=== PATIENT | female | born 1990 | race Caucasian/White ===

== ENCOUNTER → 2020-01-23 | Outpatient (CLI) | payer OTHER, SELFPAY ==
[2020-01-25 00:41] LABS: HPV APTIMA, High Risk Negative (Negative)
[2020-01-28 16:14] LABS: HPV Reflexed? YES, CHARGE PATIENT
== END | disposition home or self-care (01) ==
LOC: LABSPEC 08:54
PROVIDERS: Referring Provider Obstetrics & Gynecology; Visit Provider Obstetrics & Gynecology
DX: Z12.4 Encounter for screening for malignant neoplasm of cervix (principal)
CPT/HCPCS: 87624; 88175; G0145

== ENCOUNTER → 2020-07-02 13:00 | Outpatient (CLI) | payer OTHER, SELFPAY ==
[2020-04-22 15:01] VITALS: BMI 32.4
--- NOTE | 2020-07-02 13:10 | RAD_ITS ---
STUDY: HYSTEROSALPINGOGRAM. REASON FOR EXAM: Female, 30 years old. HYSTEROSALPINGOGRAM FLUOROSCOPY TIME (if supplied): ( 22 seconds ) minutes/seconds. 3 images were obtained. TECHNIQUE: Hysterosalpingogram was performed by the rehabilitation caseworker. Imaging was provided. COMPARISON: None. FINDINGS: The uterus is unremarkable. Both fallopian tubes are patent. RAD/Salpingogram IMPRESSION: Unremarkable hysterosalpingogram. Electronically Signed: Bashir Mendoza, at 14:49 EDT , Service support ,
== END ==
PROVIDERS: Referring Provider Obstetrics & Gynecology; Visit Provider Obstetrics & Gynecology
DX: N97.0 Female infertility associated with anovulation (principal); N92.6 Irregular menstruation, unspecified
CPT/HCPCS: 58340; 74740; Q9967

== ENCOUNTER → 2021-06-04 15:07 | Outpatient (CLI) | payer OTHER, SELFPAY ==
[2021-06-09 03:07] LABS: Chlamydia By Nucleic Acid AMP Negative (Negative)
[2021-06-09 14:01] LABS: Gonococcus By Nucleic Acid AMP Negative (Negative)
== END ==
PROVIDERS: Visit Provider Obstetrics & Gynecology
DX: Z34.81 Encounter for supervision of other normal pregnancy, first trimester (principal)
CPT/HCPCS: 87491; 87591

== ENCOUNTER → 2021-06-24 09:46 | Outpatient (CLI) | payer OTHER, SELFPAY ==
[2021-06-24 11:49] LABS: Absolute Lymphocyte Count 1.31 X10^3/uL (0.83-4.51); Absolute Neutrophil Count 6.5 X10^3/uL (2.0-7.7); Basophil# 0.04 X10^3/uL; Basophil% 0.5 % (0-1); Eosinophil# 0.31 X10^3/uL; Eosinophils% 3.6 % (0-5); Hematocrit 38.9 % (37-47); Hemoglobin 12.9 g/dL (12.0-15.0); Lymphocyte # 1.31 X10^3/ul (0.83-4.51); Lymphocyte % 15.3 % (19-41); Mean Corp Hgb Conc 33.2 g/dL (32-36); Mean Corpuscular Hgb 30.8 pg (27.0-32.0); Mean Corpuscular Volume 92.8 fL (81-99); Mean Platelet Vol. 9.7 fl (6.2-12.0); Monocyte# 0.42 X10^3/uL; Monocyte% 4.9 % (0-10); NRBC Flagged by Analyzer 0 % (0-5); Neutrophil # 6.46 X10^3/uL (2.7-7.7); Neutrophil % 75.1 % (47-70); Platelet Count 355 K/mm3 (150-450); RBC Distribution Width CV 12.4 % (11.6-14.6); RBC Distribution Width SD 42.9 fl (35.1-43.9); Red Blood Count 4.19 M/mm3 (4.2-5.4); White Blood Count 8.6 K/mm3 (4.4-11.0)
[2021-06-24 11:55] LABS: Color, Urine Yellow (Yellow); Glucose, Dipstick 1000 mg/dl (Normal); Ketone-Dipstick 15 mg/dl (Negative); Leukocyte Esterase-Dipstick Negative /ul (Negative); Nitrite-Dipstick Negative (Negative); Occult Blood-Urine 10 /ul (Negative); Protein-Dipstick Negative (Negative); Urine Bilirubin Dipstick Negative (Negative); Urine Clarity Sl. Cloudy (Clear); Urine Urobilinogen Normal (Normal)
[2021-06-24 12:54] LABS: HIV - WCH Non-Reactive (Nonreactive); Hepatitis B Surface Antigen Non-Reactive (Nonreactive); Hepatitis C Antibody Non-Reactive (Nonreactive); Rubella IgG Reactive (Nonreactive); Syphilis Antibodies Non-reactive
== END ==
PROVIDERS: Visit Provider Obstetrics & Gynecology
DX: Z34.81 Encounter for supervision of other normal pregnancy, first trimester (principal)
CPT/HCPCS: 36415; 81002; 84443; 85025; 86703; 86762; 86780; 86803; 87086; 87088; 87340

== ENCOUNTER 2021-11-02 08:55 | Outpatient (CLI) | payer OTHER, SELFPAY ==
[2021-11-02 09:45] LABS: Glucose GTT-Gestation. Fasting 84 mg/dL (<105)
[2021-11-02 10:42] LABS: Glucose GTT-Gestational 1 Hr 178 mg/dL (<190)
[2021-11-02 11:20] LABS: Glucose GTT-Gestational 2 Hr 162 mg/dL (<165)
[2021-11-02 12:50] LABS: Glucose GTT-Gestational 3 Hr 128 L (<145)
== END 2021-11-02 23:59 | disposition home or self-care (01) ==
PROVIDERS: Visit Provider Obstetrics & Gynecology
DX: O24.912 Unspecified diabetes mellitus in pregnancy, second trimester (principal)
CPT/HCPCS: 36415; 82951; 82952

== ENCOUNTER 2021-12-08 17:56 | Outpatient (CLI) | payer OTHER, SELFPAY ==
[2021-12-08 18:09] LABS: Hematocrit 36.2 % (37-47); Mean Corp Hgb Conc 35.9 g/dL (32-36); Mean Corpuscular Hgb 31.8 pg (27.0-32.0); Mean Corpuscular Volume 88.5 fL (81-99); Mean Platelet Vol. 10.6 fl (6.2-12.0); Platelet Count 270 K/mm3 (150-450); RBC Distribution Width CV 14.6 % (11.6-14.6); Red Blood Count 4.09 M/mm3 (4.2-5.4)
[2021-12-08 18:33] LABS: AST(SGOT) 15 U/L (15-37); Alanine Aminotransfer ALT/SGPT 19 U/L (13-56); Uric Acid 4.4 mg/dL (2.6-6.0)
== END 2021-12-08 23:59 | disposition home or self-care (01) ==
PROVIDERS: Visit Provider Obstetrics & Gynecology
DX: O13.9 Gestational [pregnancy-induced] hypertension without significant proteinuria, unspecified trimester (principal)
CPT/HCPCS: 84450; 84460; 84550; 85027

== ENCOUNTER 2021-12-20 10:50 | Outpatient (CLI) | payer OTHER, SELFPAY ==
[2021-12-20 11:16] VITALS: BMI 36.6
--- NOTE | 2021-12-20 20:02 | OB.TRI.NOTE ---
HPI - General HPI Narrative WARNER SUERO, is a 31 F who presents decreased movement PFSH PFSH Medical History (Updated 12/20/21 @ 20:[address] Luiz Govea MD) Asthma Allergy/AdvReac Type Severity Reaction Status Date / Time No Known Allergies Allergy Unverified 04/22/20 15:03 NST FHR Rate Baby A Baseline: 130 Variability:: Moderate Accelerations:: 15 x 15 Decelerations:: None Uterine Activity:: Quiet Assessment & Plan (1) : PLAN: Patient arrives with decreased movement, reactive NST. Now feeling regular movements. Reassuring. Okay to discharge home and follow-up scheduled appointments
== END 2021-12-20 23:59 | disposition home or self-care (01) ==
LOC: WPOUT 11:15 → WP 11:16
PROVIDERS: Referring Provider Obstetrics & Gynecology; Visit Provider Obstetrics & Gynecology
DX: O36.8190 Decreased fetal movements, unspecified trimester, not applicable or unspecified (principal); O99.519 Diseases of the respiratory system complicating pregnancy, unspecified trimester; J45.909 Unspecified asthma, uncomplicated
CPT/HCPCS: 59025; 59050; 99218; G0378

== ENCOUNTER 2021-12-22 13:30 | Outpatient (CLI) | payer OTHER, SELFPAY | END 2021-12-22 23:59 | disposition home or self-care (01) | LOC: LABSPEC 12-23 08:59 | PROVIDERS: Visit Provider Obstetrics & Gynecology | DX: Z36.85 Encounter for antenatal screening for Streptococcus B (principal) | CPT/HCPCS: 87081 ==

== ENCOUNTER 2021-12-31 18:45 | Inpatient (IN) | payer OTHER, SELFPAY ==
[2021-12-31 11:04] LABS: Hematocrit 39.6 % (37-47); Hemoglobin 13.6 g/dL (12.0-15.0); Mean Corp Hgb Conc 34.3 g/dL (32-36); Mean Corpuscular Hgb 31.3 pg (27.0-32.0); Mean Platelet Vol. 10.4 fl (6.2-12.0); Platelet Count 236 K/mm3 (150-450); RBC Distribution Width CV 14.7 % (11.6-14.6); RBC Distribution Width SD 49.1 fl (35.1-43.9); Red Blood Count 4.35 M/mm3 (4.2-5.4); White Blood Count 7.2 K/mm3 (4.4-11.0)
[2021-12-31 11:17] LABS: International Normalized Ratio 0.9; Partial Thromboplast Time 23.8 Seconds (24.1-36.2); Prothrombin Time (Protime)PT. 12.1 SECONDS (11.7-14.9)
[2021-12-31 11:50] LABS: AST(SGOT) 13 U/L (15-37); Alanine Aminotransfer ALT/SGPT 14 U/L (13-56); Creatinine, Serum 0.69 mg/dL (0.55-1.02); EST Glomerular Filtration Rate 104 mL/min (>60); Est Glom Filt Rate - Afr Amer 125 mL/min (>60); Uric Acid 4.8 mg/dL (2.6-6.0)
[2021-12-31 19:27] VITALS: BMI 37.2
[2021-12-31 19:28] VITALS: BP 133/90; PULSE 102; TEMP 37.1
[2021-12-31] MEDS: 0.9% Saline Lock 10 ML Syringe IV (19:35)
[2021-12-31 19:54] LABS: Absolute Lymphocyte Count 1.85 X10^3/uL (0.83-4.51); Absolute Neutrophil Count 6.7 X10^3/uL (2.0-7.7); Basophil# 0.02 X10^3/uL; Basophil% 0.2 % (0-1); Eosinophil# 0.07 X10^3/uL; Eosinophils% 0.8 % (0-5); Hematocrit 36.7 % (37-47); Hemoglobin 12.8 g/dL (12.0-15.0); Lymphocyte # 1.85 X10^3/ul (0.83-4.51); Lymphocyte % 20.6 % (19-41); Mean Corp Hgb Conc 34.9 g/dL (32-36); Mean Corpuscular Hgb 31.4 pg (27.0-32.0); Mean Platelet Vol. 10.5 fl (6.2-12.0); Monocyte# 0.34 X10^3/uL; Monocyte% 3.8 % (0-10); NRBC Flagged by Analyzer 0 % (0-5); Neutrophil # 6.66 X10^3/uL (2.7-7.7); Neutrophil % 74.2 % (47-70); Platelet Count 243 K/mm3 (150-450); RBC Distribution Width CV 14.5 % (11.6-14.6); RBC Distribution Width SD 47.3 fl (35.1-43.9); Red Blood Count 4.08 M/mm3 (4.2-5.4)
[2021-12-31] MEDS: miSOPROStol 25 MCG TABLET PO (20:06)
[2022-01-01] VITALS (71 sets, daily range): BP systolic 80–177; BP diastolic 42–109; PULSE 44–142; TEMP 36.2–37.1; O2SAT 79–100
[2022-01-01] MEDS: miSOPROStol 25 MCG TABLET PO ×2 (00:08→04:09)
--- NOTE | 2022-01-01 08:28 | HP.PCM.OB_ITS ---
History and Physical Date of Admission: 12/31/21 Complaint: Induction of labor for gestational hypertension History of present illness: 31-year-old at 37 weeks and 4 days with ASIA 01/18/2022 arrives for induction of labor for gestational hypertension. Denies headache, visual changes, chest pain, shortness of breath, nausea vomiting, right upper quadrant pain. Patient states good movement. is complicated by gestational hypertension Obstetric history: G1: Current Past medical history: None Medications: vitamin Past surgical history: [place] teeth extraction, foot Allergies: No known drug allergies Social history: Denies smoking, alcohol use, drug use Family history: Denies history DVT or PE View of systems: Besides above pertinent positives a full review of systems was performed and found to be negative Physical exam: Vitals: Blood pressure 148/96 pulse 77 Fahrenheit SPO2 90% on room air General: Normal-appearing no acute distress HEENT: Normocephalic atraumatic no cervical of adenopathy Cardiac/respiratory: No use of accessory muscles, nonlabored breathing Abdomen: Soft, nontender, gravid Extremities: No peripheral edema normal peripheral pulses Psych: Affect normal demeanor nonpressured speech Labs: White blood cell count 9.0 hemoglobin 12.8 hematocrit 36.7% platelets 243. Creatinine 0.69. AST 13 ALT 14. Blood type a positive antibody negative Assessment plan: 31-year-old at 37 weeks and 4 days for induction of labor with gestational hypertension Admit labor and delivery CEFM GBS negative Cytotec induction Gestational hypertension: Remains with nonsevere range pressures. We will continue to monitor Routine orders
--- NOTE | 2022-01-01 09:23 | HP.PCM_ITS ---
History and Physical Date of Admission: 12/31/21 ACOG ANTEPARTUM RECORD - HISTORY AND PHYSICAL (01/01/2022) Name: WARNER DILL History of this : This is a 31 year old [id number] presents at 37 wks + 4 days gestation for gestational HTN. OB Physician: Luis Ayala MD [place]'s Physician: UNDECIDED ...................................................................... : 1990 Age: 31 Address: [address] [place] [address] Phone: [phone]) [phone] Insurance Carrier: [employer] [id number] Emergency Contact: MALCOM DILL/SPOUSE [phone] ...................................................................... Final ASIA: 01/18/22 By Ultrasound: 7 weeks 3 days PARITY: (G-Total Pregnancies P-Fullterm,Premature,Induced AB,Spont AB, Ectopics, Multiple,Living) ASIA CONFIRMATION: By LMP: 04/06/21 Final ASIA: 01/18/22 OB PROBLEM LIST: 3 hour gtt shows that she does NOT have gestational DM. Declines genetic and carrier screening H/O UTI's Plans to breastfeed, and will likely take the office class. Prefers natural childbirth. Childbirth class encouraged. ALLERGIES: No Known Allergies MEDICATIONS: coconut oil 1,000 mg capsule One pill by mouth once a day 28 mg iron-800 mcg tablet One pill by mouth once a day Vitamin C 500 mg tablet One pill by mouth once a day SOCIAL HISTORY: Smoking - Never Alcohol Use - denies drinking Diet - no special diet Lifestyle - moderate stress lifestyle and Exercise - regular Employer - [employer] Job Description - Book Keeping Illicit Drug Use - denies use of street drugs Sexual Activity - Residence - lives with Place of - [place], [place] Hours Worked - 40 hours per week Spouse-Sig Other Name - Malcom Dill Spouse-Sig Other Occupation - Construction Spouse-Sig Other Phone No - [phone] PRIOR DELIVERY HISTORY DEL DATE GEST LAB WT LB WT OZ TYPE ANES LABOR TX ANTEPARTUM FLOW CHART VISIT GE RTC FU F F FL U U DATE WK MD WKS HT PN HR M SS BP ED WT FL GL D EF ST __ ____ ___ __ __ ___ __ __ __ ___ __ __ __ ___ __ 14 Dec 37 JMW 6 37 V + + 144/100 sl 204 tr ne 1 50 -2 05 Apr 36 JMW 1 36 V + + 134/76 0 202 tr ne ft 50 -2 Nov 35 JMW 1 35 + + 118/76 0 202 tr ne 23 Nov 34 JMW + 120/80 sl 201 tr - Nov 34 JMW .1 34 + + 140/86 1+ 198 tr ne 01 Mar 31 JMW 3 31 + + 124/68 0 198 tr - 08 Nov 16 JMW 3 28 + + 128/86 0 196 - tr Oct 11 JMW 5 24 + + 122/78 0 192 tr - 08 Sep 06 JMW 4 24 + + 110/68 0 186 tr ne 02 Aug 02 JMW 5 + ? 102/70 0 184 - - 06 Jun 28 JMW 4 U+ US 114/72 0 183 tr - ANTEPARTUM NOTE(S): Dec 31 2021: BP on side 134/88, induce; BEEBE; DRTs 2+ Dec 22 2021: No problems, Good FM Dec 15 2021: see progress note, Good FM Dec 09 2021: Dec 08 2021: no PIH sxs; check PIH labs Nov 17 2021: work related discomfort. Oct 27 2021: doing well, labs today Sep 22 2021: Glucola/Instructions given, Good FM,Feeling Well Aug 26 2021: Sono Today, Feeling Well Jul 21 2021: Nausea Better, Fatigue Continues, Declines AFP Jun 24 2021: Slight nausea,Fatigue continues COMPREHENSIVE ANTEPARTUM NOTE(S): Dec 31 2021: Warner is here for visit at 37.3 w. Some cramping w BH at home. Baby moving well. Initial BP 144/100. Repeat on left side 134/88. Lg cuff both times. Working 40+ h/w. short handed at work and stressful. PIH labs drawn now. For cytotec induction per Dr WEISS. All paperwork/forms read and sign ed. ACMILO. Dec 29 2021: H taken to OB. tkg Dec 22 2021: Marleny is here for PNV and GBS testing. Continues to work 40 hrs /wk. Denies edema. Reports good FM. Questionable FM ovder weekend and went to for monitoring. Dec 15 2021: Marleny is here for PNV. Reports feeling better this week after decreasing work hours to around 40 hrs/wk. To keep he rinsurance coverage she does not think she can decrease hours any further. Reports good FM, denies edema. Dec 09 2021: Marleny is here for nurse BP check. Continues to work 50 h/w. Does sit at work. Urine protein trace. Edema slight in feet neeta. BP 120/80 w large cuff after sitting about [address] WEISS. Advised to decrease hours to as close to 40 as she can. Stay well hydrated and be cautious about sodium intake. She is agreeable. CAMILO. Dec 08 2021: Lesli is here for PNV. Recently noting edema in lower legs. BP higher today than prev. visits and Dr. Ayala ordered PIH labs. Reports good FM. Repeat BP 136/84 laying on left side. Nov 17 2021: Lesli is doing well with exeption of some work related discomfort from sitting all day. Reports late afternoon she starts to feel uncomfortable in low belly form sitting.Discussed use of belly band, getting up and moving around frequently. Reports good FM. Oct 27 2021: 1hr gct and CBC obtained from Rt ac x 2 attempts with 23g butterfly. Patient tolerated well. Sites without compromise. Jlb Aug 26 2021: Emma and her are here for US and visit. NOB paperwork and EPDS score 3 completed. Feeling well except for constipation. Has tried Metamucil and stopped vitamin temporarily. Advised Colace and continue to increase fluids. Reminded to register for Childbirth class. CAMILO. Jul 23 2021: TELEHEALTH NOB VISIT, 50 MINUTE DURATION. Marleny is a 31 year old with an ASIA of 01/18/2022, current GA is 14 w 3 d. She states that she and her , Malcom, are happy and excited about the , as they have been trying to get for awhile. Marleny states that she has very mild nausea and fatigue. Reviewed methods that may help minimize nausea, including small frequent meals, c Sep 2020: Warner presents here today for review of US done today in our Office for possible Missed AB. 31 y.o. G 1 P 0 non-smoker with LMP of 04/06/21 and started with a sudden gush of bleeding on 05-26-21 and has had LLQ pain/twinges since that time. Continues with brown discharge through today. Medication and Allergy lists up-dated. UPT is positive today in our Office. ABHIJIT Jun 04 2021: ok REVIEW OF SYSTEMS: GENERAL - Denies fever, or chills SKIN - Denies rash, new skin lesions, or change in moles EYES - Denies blurred vision, or change in visual acuity EARS - Denies ear pain, or difficulty hearing NOSE - Denies nasal congestion, discharge, or bleeding MOUTH - Denies sore throat, or difficulty swallowing NECK - Denies pain or swelling RESPIRATORY - Denies shortness of breath, cough, wheezing CARDIOVASCULAR - Denies palpitations, chest pain, orthopnea, PND, peripheral edema, syncope or claudication GASTROINTESTINAL - Denies nausea, vomiting, diarrhea, constipation, Denies abdominal pain, melena and or bright red blood GENITOURINARY - Denies dysuria, frequency of urination, urgency, or hesitancy MUSCULOSKELETAL - Denies joint or muscle pain, or back pain NEUROLOGICAL - Denies localized numbness, weakness, or tingling PSYCHIATRIC - Denies depression, anxiety, substance abuse or suicide attempts ENDOCRINE - Denies heat or cold intolerance, weight loss or gain, increasing thirst HEMATO-IMMUNOLOGIC - Denies easy bruising, bleeding, oral ulcerations or recurrent infections GENETICS SCREENING: Age 35+ years: No Thalassemia: No Neural Tube Defect: No Down Syndrome: No MYESHA-SACHS: No Sickle Cell Disease: No Hemophilia: No Musc. Dystrophy: No Cystic Fibrosis: No-declines screening Nica Chorea: No Mental Retardation: No Fragile X: No Other genetic: No Other defects: No SABs/still births: No Drugs since LMP: No INFECTION HISTORY: High risk AIDS: No High risk Hepatitis: No Exposed to TB: No Exposed to Herpes: No Rash/viral illness since LMP: No History of STD: No MENSTRUAL HISTORY: *Menses Amount/Duration: 2-3 daysMenses Regularity: IrregularFrequency: variableMenarche (Age Onset): 11* PAST SUMMARY: PARITY: 1. Total Pregnancies............ 1 2. Full Term Pregnancies........ 0 3. Premature.................... 0 4. Abortions - Induced.......... 0 5. Abortions - Spontaneous...... 0 6. Ectopics..................... 0 7. Multiple Births.............. 0 8. Living Children.............. 0 PHYSICAL EXAMINATION General Appearence: 31 yo female in no acute distress Vital Signs: AF, VSS Heart: RRR without rubs or gallops Lungs: CTA x 2 Breasts: deferred Abdomen: gravid Pelvis: Cervix: 3-4/80 AROM clear Presentation: cephalic Station: -2 Fetus: Size: AGA Movement: present Heart: present LAB TEST(S) ORDERED SINCE:04/23/21 06/26/2021 URINE CULTURE 06/24/2021 URINALYSIS, ROUTINE (DIPSTICK) 06/24/2021 THYROID STIM HORMONE (TSH) 06/24/2021 RUBELLA IGG 06/24/2021 T AND S-NO CHARGE W/PNP 06/24/2021 L509.8000 06/24/2021 HIV - [facility] 06/24/2021 HEPATITIS C ANTIBODY 06/24/2021 HEPATITIS B SURFACE ANTIGEN 06/24/2021 CBC W/DIFF, AUTOMATED 06/09/2021 CHLAMYDIA/GC GRIFFIN APTIMA 05/30/2021 PREG SERUM QUANT 05/27/2021 PREG SERUM QUANT 12/31/2021 URIC ACID 12/31/2021 TYPE AND SCREEN 12/31/2021 SERUM CREATININE AND GFR 12/31/2021 PROTHROMBIN TIME W/INR 12/31/2021 PARTIAL THROMBOPLAST TIME 12/31/2021 COVID 19 AG RAPID (RN COLLECT) 12/31/2021 CBC-COMPLETE BLOOD CNT NO DIFF 12/31/2021 CBC W/DIFF, AUTOMATED 12/31/2021 AST(SGOT) 12/31/2021 ALANINE AMINOTRANSFERAS (SGPT) 12/28/2021 RULE OUT BETA STREP (GRP. B) 12/08/2021 URIC ACID 12/08/2021 CBC-COMPLETE BLOOD CNT NO DIFF 12/08/2021 AST(SGOT) 12/08/2021 ALANINE AMINOTRANSFERAS (SGPT) 11/02/2021 GESTATIONAL GTT 3HR 100G 10/27/2021 GLUCOSE CHALLENGE 50GM 1 HOUR 10/27/2021 CBC + DIFF == ==== Order Observation Description Value Ref_Range A* Site == ==== COVID 19 AG RAP NOTE [facility]~[address] [place], [address]~ TYPE AND SCRE AB SCREEN GEL NEGATIVE ML CBC W/DIFF, AUT NOTE [facility] CBC W/DIFF, AUT WBC 9.0 K/mm3 4.4-11.0 ML CBC W/DIFF, AUT RBC 4.08 M/mm3 4.2-5.4 L ML CBC W/DIFF, AUT HGB 12.8 g/dL 12.0-15.0 ML CBC W/DIFF, AUT HCT 36.7 37-47 L ML CBC W/DIFF, AUT MCV 90.0 fL 81-99 ML CBC W/DIFF, AUT MCH 31.4 pg 27.0-32.0 ML CBC W/DIFF, AUT MCHC 34.9 g/dL 32-36 ML CBC W/DIFF, AUT RDW CV 14.5 11.6-14.6 ML CBC W/DIFF, AUT RDW SD 47.3 fl 35.1-43.9 H ML CBC W/DIFF, AUT PLT 243 K/mm3 150-450 ML CBC W/DIFF, AUT MPV 10.5 fl 6.2-12.0 ML CBC W/DIFF, AUT NEUT% 74.2 47-70 H ML CBC W/DIFF, AUT LY% 20.6 19-41 ML CBC W/DIFF, AUT MONO% 3.8 0-10 ML CBC W/DIFF, AUT EO% 0.8 0-5 ML CBC W/DIFF, AUT BASO% 0.2 0-1 ML CBC W/DIFF, AUT IG% 0.400 0.0-0.9 ML IG% - Immature Granulocytes (promyelocytes, myelocytes and metamyelocytes) > 1% indicates that a LEFT SHIFT is Present. CBC W/DIFF, AUT ABSOLUTE NEUT 6.7 X10 3/uL 2.0-7.7 ML CBC W/DIFF, AUT ABSOLUTE LYMPH 1.85 X10 3/uL 0.83-4.51 ML CBC W/DIFF, AUT NUCLEATED RBC 0 0-5 ML ALANINE AMINOTR NOTE [facility] ALANINE AMINOTR ALT 14 U/L 13-56 ML AST(SGOT) NOTE ZAMBRANO AST(SGOT) AST 13 U/L 15-37 L ML URIC ACID NOTE Z[facility]O URIC ACID URIC 4.8 mg/dL 2.6-6.0 ML The drugs N-Acetylcysteine and Metamizole may falsely depress this assay. SERUM CREATININ NOTE ZAMBRANO SERUM CREATININ CREAT,SERUM 0.69 mg/dL 0.55-1.02 ML The validity of the calculated GFR GFRAA in patients over 70 years has not been determined. Clinical correlation is essential. SERUM CREATININ EST GFR 104 mL/min >60 ML Non- GFR Calc SERUM CREATININ EST GFR - AA 125 mL/min >60 ML GFR Calc PARTIAL THROMBO NOTE ZAMBRANO PARTIAL THROMBO PTT 23.8 Seconds 24.1-36.2 L ML PROTHROMBIN RAQUEL NOTE Z[facility]O PROTHROMBIN RAQUEL PROTIME 12.1 SECONDS 11.7-14.9 ML PROTHROMBIN RAQUEL INR 0.9 ML CBC-COMPLETE BL NOTE [facility]O CBC-COMPLETE BL WBC 7.2 K/mm3 4.4-11.0 ML CBC-COMPLETE BL RBC 4.35 M/mm3 4.2-5.4 ML CBC-COMPLETE BL HGB 13.6 g/dL 12.0-15.0 ML CBC-COMPLETE BL HCT 39.6 37-47 ML CBC-COMPLETE BL MCV 91.0 fL 81-99 ML CBC-COMPLETE BL MCH 31.3 pg 27.0-32.0 ML CBC-COMPLETE BL MCHC 34.3 g/dL 32-36 ML CBC-COMPLETE BL RDW CV 14.7 11.6-14.6 H ML CBC-COMPLETE BL RDW SD 49.1 fl 35.1-43.9 H ML CBC-COMPLETE BL PLT 236 K/mm3 150-450 ML CBC-COMPLETE BL MPV 10.4 fl 6.2-12.0 ML RULE OUT BETA S NOTE ZAMBRANO AST(SGOT) NOTE ZAMBRANO AST(SGOT) AST 15 U/L 15-37 ML ALANINE AMINOTR NOTE ZAMBRANO ALANINE AMINOTR ALT 19 U/L 13-56 ML URIC ACID NOTE ZAMBRANO URIC ACID URIC 4.4 mg/dL 2.6-6.0 ML The drugs N-Acetylcysteine and Metamizole may falsely depress this assay. CBC-COMPLETE BL NOTE ZAMBR[facility]O CBC-COMPLETE BL WBC 9.0 K/mm3 4.4-11.0 ML CBC-COMPLETE BL RBC 4.09 M/mm3 4.2-5.4 L ML CBC-COMPLETE BL HGB 13.0 g/dL 12.0-15.0 ML CBC-COMPLETE BL HCT 36.2 37-47 L ML CBC-COMPLETE BL MCV 88.5 fL 81-99 ML CBC-COMPLETE BL MCH 31.8 pg 27.0-32.0 ML CBC-COMPLETE BL MCHC 35.9 g/dL 32-36 ML CBC-COMPLETE BL RDW CV 14.6 11.6-14.6 ML CBC-COMPLETE BL RDW SD 47.0 fl 35.1-43.9 H ML CBC-COMPLETE BL PLT 270 K/mm3 150-450 ML CBC-COMPLETE BL MPV 10.6 fl 6.2-12.0 ML GESTATIONAL GTT NOTE ZAMBRANO GESTATIONAL GTT 3HR GTT- GEST. MG/DL ML FASTING 84 Col: 11/02/21 0852 GLUCOSE TOLERANCE TEST FOR Reference Interval GESTATIONAL DIABETES Fasting <105 mg/dL 1 hour <190 mg/dl 2 hour <165 mg/dl 3 hour <145 mg/dl 1 HR GLU 178 Col: 11/02/21 0952 2 HR GLU 162 Col: 11/02/21 1052 3 HR GLU 128 Col: 11/02/21 1152 GLUCOSE CHALLEN NOTE [facility] GLUCOSE CHALLEN GLUCOSE CHALLENGE 50GM 1 [facility] 50 GMS 1 HOUR GLUCOSE CHALLEN GLUCOSE 1HR 142 mg/dl 70 - [address] [facility] CBC + DIFF NOTE [facility] CBC + DIFF CBC + DIFF [facility] CBC-COMPLETE BLOOD COUNT CBC + DIFF WBC 10.3 x 10EE3/UL 4.5 - 10.8 [facility] CBC + DIFF RBC 3.93 x 10EE6/UL 4.10 - 5.30 L [facility] CBC + DIFF HEMOGLOBIN 11.9 g/dl 12.0 - 16.0 L [facility] CBC + DIFF HEMATOCRIT 35.1 % 34.0 - 46.0 [facility] CBC + DIFF MCV 89 fl 80 - 99 [facility] CBC + DIFF MCH 30 pg 27 - 33 [facility] CBC + DIFF MCHC 34 X10 3 32 - 36 [facility] CBC + DIFF RDW/CV 14.4 % 12.0 - 15.6 [facility] CBC + DIFF PLATELET 333 x10EE3/UL 150 - 450 [facility] CBC + DIFF MPV 8.2 fl 6.6 - 10.5 [facility] AUTOMATED DIFFERENTIAL CBC + DIFF NEUT % 78.8 % 46.0 - 76.0 H [facility] CBC + DIFF LYMPH % 16.3 % 20.0 - 45.0 L [facility] CBC + DIFF MONOS % 3.8 % 0.0 - 10.0 [facility] CBC + DIFF EO % 0.7 % 0.0 - 7.0 [facility] CBC + DIFF BASO % 0.4 % 0.0 - 2.0 [facility] CBC + DIFF LYMPH # 1.70 x10EE3/UL 0.80 - 2.80 [facility] CBC + DIFF NEUT # 8.20 x10EE3/UL 1.50 - 7.10 H [facility] CBC + DIFF MONO # 0.40 x10EE3/UL 0.20 - 1.00 [facility] CBC + DIFF EO # 0.10 x10EE3/UL 0.00 - 0.50 [facility] CBC + DIFF BASO # 0.00 x10EE3/UL 0.00 - 0.10 [facility] CBC + DIFF MANUAL DIFF N/A [facility] CBC + DIFF MORPHOLOGY N/A [facility] {CD] URINE CULTURE NOTE [facility] PN N [facility]~[address] [place], [address]~ T AND AB SCREEN GEL NEGATIVE ML HEPATITIS C ANT NOTE [facility] HEPATITIS C ANT HEPATITIS C AB Non-Reactive Nonreactive ML Non Reactive: < 0.8 Equivocal: >/= 0.8 to < 1.0 Reactive: >/= 1.0 The CDC recommends that a reactive/equivocal HCV antibody result be followed up by the HCV Nucleic Acid Amplification test (643452) HEPATITIS B HILLARY NOTE ZAMBR[facility]O HEPATITIS B [place]ARY HEP B SURF AG Non-Reactive Nonreactive ML HIV - WC NOTE [facility]O HIV - [facility] HIV Non-Reactive Nonreactive ML L509.8000 NOTE ZAMBRANO L509.8000 SYPHILIS ABS Non-reactive ML RUBELLA IGG NOTE [facility]BR[facility]O RUBELLA IGG RUBELLA IGG Reactive Nonreactive ML Antibody Results Interpretation of Immune Status Non Reactive Presumed Non-Immune Equivocal Equivocal Reactive Presumed Immune THYROID STIM HO NOTE [facility]O THYROID STIM HO TSH 0.80 uIU/mL 0.358-3.74 ML URINALYSIS, ROU NOTE Z[facility]BR[facility]O URINALYSIS, ROU COLOR Yellow Yellow ML URINALYSIS, ROU URINE CLARITY Sl. Cloudy Clear ML URINALYSIS, ROU GLUCOSE, UR 1000 mg/dl Normal A ML URINALYSIS, ROU BILIRUBIN URINE Negative mg/dL Negative ML URINALYSIS, ROU KETONE UR 15 mg/dl Negative A ML URINALYSIS, ROU SP.GR. DIPSTX 1.020 1.002-1.030 ML URINALYSIS, ROU PH UR 6.0 5.0 - 8.0 ML URINALYSIS, ROU PROT DIPSTX Negative mg/dl Negative ML URINALYSIS, ROU UROBILI Normal mg/dl Normal ML URINALYSIS, ROU NITRITE Negative Negative ML URINALYSIS, ROU OCCULT BLOOD-UR 10 /ul Negative A ML URINALYSIS, ROU LEUK ESTERASE Negative /ul Negative ML CBC W/DIFF, AUT NOTE Z[facility]O CBC W/DIFF, AUT WBC 8.6 K/mm3 4.4-11.0 ML CBC W/DIFF, AUT RBC 4.19 M/mm3 4.2-5.4 L ML CBC W/DIFF, AUT HGB 12.9 g/dL 12.0-15.0 ML CBC W/DIFF, AUT HCT 38.9 37-47 ML CBC W/DIFF, AUT MCV 92.8 fL 81-99 ML CBC W/DIFF, AUT MCH 30.8 pg 27.0-32.0 ML CBC W/DIFF, AUT MCHC 33.2 g/dL 32-36 ML CBC W/DIFF, AUT RDW CV 12.4 11.6-14.6 ML CBC W/DIFF, AUT RDW SD 42.9 fl 35.1-43.9 ML CBC W/DIFF, AUT PLT 355 K/mm3 150-450 ML CBC W/DIFF, AUT MPV 9.7 fl 6.2-12.0 ML CBC W/DIFF, AUT NEUT% 75.1 47-70 H ML CBC W/DIFF, AUT LY% 15.3 19-41 L ML CBC W/DIFF, AUT MONO% 4.9 0-10 ML CBC W/DIFF, AUT EO% 3.6 0-5 ML CBC W/DIFF, AUT BASO% 0.5 0-1 ML CBC W/DIFF, AUT IG% 0.600 0.0-0.9 ML IG% - Immature Granulocytes (promyelocytes, myelocytes and metamyelocytes) > 1% indicates that a LEFT SHIFT is Present. CBC W/DIFF, AUT ABSOLUTE NEUT 6.5 X10 3/uL 2.0-7.7 ML CBC W/DIFF, AUT ABSOLUTE LYMPH 1.31 X10 3/uL 0.83-4.51 ML CBC W/DIFF, AUT NUCLEATED RBC 0 0-5 ML CHLAMYDIA/GC NA NOTE Z[facility]BRANO CHLAMYDIA/GC NA CHLAMY,NUC ACID Negative Negative [facility] CHLAMYDIA/GC NA GC BY NUC ACID Negative Negative [facility] Performed at: = - [facility] [id number] College Basketball Coach: Shelby Campos MD, Phone: [phone] PREG SERUM ODETTE NOTE [facility] PREG SERUM ODETTE HCG QUANTITATIVE 11631 mIU/mL 0 - 6 H [facility] Reference Range: Male: <5 Female: Non: <5 1 - 7 days : 5 - 50 1 - 2 weeks: 50 - 500 2 - 3 weeks: 100 - 5000 3 - 4 weeks: 500 - 10,000 4 - 5 weeks: 1000 - 50,000 5 - 6 weeks: 10,000 - 100,000 6 - 8 weeks: 15,000 - 200,000 2 - 3 months: 10,000 - 100,000 2ND TRIMESTER 3000-50,000 3RD TRIMESTER 1000-50,000 PREG SERUM ODETTE NOTE [facility] PREG SERUM ODETTE HCG QUANTITATIVE 78280 mIU/mL 0 - 6 H [facility] Reference Range: Male: <5 Female: Non: <5 1 - 7 days : 5 - 50 1 - 2 weeks: 50 - 500 2 - 3 weeks: 100 - 5000 3 - 4 weeks: 500 - 10,000 4 - 5 weeks: 1000 - 50,000 5 - 6 weeks: 10,000 - 100,000 6 - 8 weeks: 15,000 - 200,000 2 - 3 months: 10,000 - 100,000 2ND TRIMESTER 3000-50,000 3RD TRIMESTER 1000-50,000 *Negative results from patients with symptom onset beyond five days should be treated as presumptive and confirmed by a molecular assay if clinically necessary. Negative results should not be used as the sole basis for treatment or for patient management. SARS-CoV-2 Ag Resp Ql IA.rapid *Positive results do not differentiate between SARS-CoV and SARS-CoV-2. If differentiation of the specific SARS virus is desired an additional sample and an additional order is required. SARS-CoV-2 Ag Resp Ql IA.rapid * This test has not been FDA cleared or approved; the test has been authorized by FDA under an Emergency Use Authorization (EAU) for use by laboratories certified under CLIA that meet the requirements to perform moderate, high, or waived complexity tests. SARS-CoV-2 Ag Resp Ql IA.rapid Normal Reference Range: Negative SARS-CoV-2 (COVID 19) Negative RAPID METHOD Quidel Maureen Analyzer CAROL A POSITIVE Group B Beta Streptococcus is not isolated. #1 Below infection level. #2 Clinical correlation necessary, Possible skin contamination. GPC Poss Enterococcus sp [place] Count 1000-10,000 Presumptive Lactobacillus sp. [place] Count 25,000-50,000 A POSITIVE == ==== Impression /Plan: 37 wks + 4 days intrauterine . Had cytotec overnight. AROM with clear fluid this AM. Preparations in progress for delivery.
[2022-01-01] MEDS: Lactated Ringers 1,000 ML 50 ML IV (09:55)
[2022-01-01] MEDS: Oxytocin 30 units/NS 500 ml 30 UNITS/500 ML IV.SOLN IV (09:55)
[2022-01-01] MEDS: Lactated Ringers 500 ML 999 ML IV ×2 (14:40→15:48)
[2022-01-01] MEDS: hydrALAZINE 20 MG/ML Vial 5 MG IV (14:47)
[2022-01-01] MEDS: hydrALAZINE 20 MG/ML Vial 10 MG IV (15:12)
[2022-01-01] MEDS: fentaNYL-bupivacaine (epidural) 100 ML BAG EPIDURAL ×2 (17:31→22:33)
[2022-01-01] MEDS: Lactated Ringers 1,000 ML 200 ML IV ×2 (17:48→22:46)
[2022-01-02] VITALS (32 sets, daily range): BP systolic 96–146; BP diastolic 67–89; PULSE 84–205; RESP 16; TEMP 36.3–38.5; O2SAT 83–100
[2022-01-02] MEDS: Mag Hydrox/Al Hydrox/Simeth 30 ML UDC PO (00:48)
[2022-01-02] MEDS: Oxytocin 30 units/NS 500 ml 30 UNITS/500 ML IV.SOLN 999 UNITS IV (01:02)
[2022-01-02] MEDS: Methylergonovine 0.2 MG/ML Ampul IM (01:05)
--- NOTE | 2022-01-02 01:22 | EX.PCM.OBRPT ---
Maternal Data Information Final ASIA: 01/18/22 Final ASIA Source: US <20 weeks Gestational age: 37 weeks 4 days gestation Vaginal Delivery Maternal Presentation Maternal Presentation: Medically Indicated Induction (Gestational Hypertension) Type of Induction: Cervidil, Pitocin and Amniotomy Medical Reason for Induction: Gestational Hypertension Operative Information Date of Procedure: 01/02/22 Pre-Operative Diagnosis: Gestational Hypertension, IUP Post-Operative Diagnosis: Gestational Hypertension, IUP Type of Anesthesia: Epidural Estimated Blood Loss: 350 cc Fluids Replaced: Crystalloid Findings Description of Procedure: Spontaneous vaginal delivery of a viable male with Apgars of 8/9 from an occiput anterior presentation with clear amniotic fluid and normal three-vessel placenta. True knot noted in umbilical cord. No episiotomy or lacerations. Sponges okay. Delivery physician: Luis Ayala MD. Presentation: Vertex Amniotic Membrane Rupture Type: Artificial Amniotic Fluid Description: Clear Placental Delivery Description: Spontaneous Placenta Disposition: [facility] Cord Vessel Description: 3 Vessels Cord Entanglement: None and True Knot(s) Infant A Gender: Male (1 minute): 8 (5 minute): 9 Post Vaginal Delivery Medications Given After Delivery: IV Pitocin and IM [place]her[place] Episiotomy Description: None Laceration: None Complication Complications: None
[2022-01-02] MEDS: Ondansetron 4 MG/2 ML Vial IV (01:35)
[2022-01-02] MEDS: Acetaminophen 500 MG Tablet 1000 MG PO ×2 (02:52→19:43)
[2022-01-02] MEDS: Ibuprofen 600 MG Tablet PO (12:12)
[2022-01-02] MEDS: Senna/Docusate Sodium 1 Tablet PO (12:13)
[2022-01-03 02:59] VITALS: BP 121/82; PULSE 75; RESP 16; TEMP 36.6
[2022-01-03] MEDS: Ibuprofen 600 MG Tablet PO (06:07)
[2022-01-03 07:45] VITALS: BP 128/72; PULSE 95; RESP 18; TEMP 36.7; O2SAT 95
--- NOTE | 2022-01-03 08:46 | PCM.PN.OB ---
Subjective Subjective Patient without complaints. Minimal vaginal bleeding reported. Breast-feeding going well. Wants to go home later today if baby is able to go. Objective Data Objective Data Vital Signs: Vital Signs Temp Pulse Resp BP Pulse Ox 98.0 F 95 18 128/72 H 95 01/03/22 07:45 01/03/22 07:45 01/03/22 07:45 01/03/22 07:45 01/03/22 07:45 Oxygen Delivery Method Room Air Weight: 203 lb 6 oz Body Mass Index (BMI) 37.2 Intake & Output: Intake and Output for Last 24 Hours 01/01/22 01/02/22 01/03/22 23:59 23:59 23:59 Intake Total 2885.20 / 2885.20 1002.00 / 1002.00 Output Total 1100 / 1100 950 / 950 Balance 1785.20 / 1785.20 52.00 / 52.00 Lab / Micro Data Result Diagrams: 12/31/21 19:35 12/31/21 10:51 Micro: Microbiology 12/31/21 19:53 Nasal Secretion SARS-CoV-2 Antigen (Rapid) - Final Assessment & Plan (1) Vaginal delivery: PLAN: Doing well day #1 status post routine spontaneous vaginal delivery. Blood pressures have remained normal post . Will discharge to home with routine instructions if baby is able to go.
--- NOTE | 2022-01-03 08:48 | PCM.DC ---
Discharge Instructions Diet Discharge Diet: No restrictions Activity Discharge Activity: May Drive (In 1 to 2 days if not taking narcotic pain medication), May Shower and May Take a Tub Bath May resume sexual activity in: 4-6 weeks Additional Activity Instructions:: Nothing in the vagina for 4-6 weeks. You may return to work/school in 6 weeks. Dressing / Incision Call your doctor if you observe: Fever of 101 or Higher, Inability to urinate, Inability to have a bowel movement and Using more than 1 pad per hour Follow Up Care Please Follow Up With: Luis Ayala MD When: Call [phone] to make an appointment with your doctor in 6 weeks. Test Results: Test results from this visit will be discussed in further detail at your follow-up appointment, if applicable. Discharge Plan Admission Admit Date/Time: 12/31/21 18:45 Primary Reason for Your Visit: Vaginal Delivery Attending Provider: Luis Ayala Primary Care Provider: Care Physician,No Primary Discharge Orders/Prescriptions Prescriptions: No Action 1 mg Tablet 1 tab PO DAILY RF: 0 docusate sodium [Colace] 100 mg Capsule 100 mg PO DAILY RF: 0 Referrals / Follow Up: Care Physician,No Primary [Primary Care Provider] - Disposition Disposition (needs filled in before D/C Order can be placed): Home, Self Care
[2022-01-03 11:10] VITALS: BP 142/90; PULSE 82; RESP 18; TEMP 36.3; O2SAT 100
--- NOTE | 2022-01-03 13:20 | NURSING ---
Preparing pt for discharge. Feeding plan written out and provided for pt that includes putting infant to breast with nipple shield q2-3 hours, supplementing with 10cc donor milk or formula, and pumping for 15 minutes following feeding. Pt education provided throughout the day of appropriate amounts of colostrum and donor milk to be fed at each feeding. Pt verbalizes understanding and denies questions.
[2022-01-03 13:33] VITALS: BP 136/95
== END 2022-01-03 13:55 | disposition home or self-care (01) | DRG 807 ==
LOC: WP 18:50
PROVIDERS: Admitting Provider Obstetrics & Gynecology; Referring Provider Obstetrics & Gynecology; Visit Provider Obstetrics & Gynecology
DX: O13.4 Gestational [pregnancy-induced] hypertension without significant proteinuria, complicating childbirth (principal); Z37.0 Single live birth; O69.2XX0 Labor and delivery complicated by other cord entanglement, with compression, not applicable or unspecified; Z3A.37 37 weeks gestation of pregnancy
CPT/HCPCS: 36415; 59025; 59050; 82565; 84450; 84460; 84550; 85025; 85027; 85610; 85730; 86850; 86900; 86901; 87426; 99218; J7120; A4216; G0378; J2405

== ENCOUNTER → 2023-03-02 | Outpatient (CLI) | payer OTHER, SELFPAY ==
--- NOTE | 2023-03-03 09:42 | PFT ---
INTRODUCTION: The patient is a 33-year-old female that presents for pulmonary function studies secondary to a diagnosis of asthma. Respiratory therapy reported good patient effort. Bronchodilators were used during testing. INTERPRETATION: Forced expiration spirometry demonstrated no evidence of a large airways obstructive ventilatory defect.. There was a significant response to aerosolized bronchodilators. Spirograms are of good quality and plateau normally. Body plethysmography was performed and revealed lung volumes to be within normal limits. Diffusing capacity by single breath CO was within normal limits. IMPRESSION: Stigmata of small airways disease with significant bronchodilator response, consistent with the patient's diagnosis of asthma.
== END | disposition home or self-care (01) ==
LOC: PSN 07:44
PROVIDERS: Referring Provider Internal Medicine; Visit Provider Internal Medicine
DX: J45.909 Unspecified asthma, uncomplicated (principal)
CPT/HCPCS: 87633; 94060; 94726; 94729; C9803

== ENCOUNTER → 2023-03-24 | Outpatient (CLI) | payer OTHER, SELFPAY ==
--- NOTE | 2023-03-24 10:49 | RAD_ITS ---
STUDY: X-RAY CHEST REASON FOR EXAM: Female, 33 years old. cough, asthma TECHNIQUE: PA and lateral views of the chest. COMPARISON: None. FINDINGS: The lungs are clear and expanded. There is no demonstrated pleural abnormality. Normal size heart. Normal mediastinum and ino. Normal visualized pulmonary arteries. Normal visualized aortic arch and descending thoracic aorta. Normal visualized thoracic spine. Normal visualized ribs, clavicles, and shoulders. There is no demonstrated abnormality of the visualized soft tissue structures of the upper abdomen. RAD/Chest PA and Lateral IMPRESSION: Normal x-ray examination of the chest. Electronically Signed: Óscar Gomes MD at 20:44 EDT ,
[2023-03-27 01:06] LABS: Alternaria tenuis 1.15 kU/L (Class II); Aspergillus fumigatus 0.64 kU/L (Class II); Bermuda Grass 2.48 kU/L (Class III); Birch 0.41 kU/L (Class I); Black Walnut 0.24 kU/L (Class 0/I); Cedar, Mountain 0.24 kU/L (Class 0/I); Cladosporium herbarum 0.28 kU/L (Class 0/I); Cockroach, American 0.56 kU/L (Class II); Cottonwood 0.25 kU/L (Class 0/I); D farinae Mite 1.42 kU/L (Class III); D pteronyssinus 1.66 kU/L (Class III); Dog Epithelia >100 kU/L (Class VI); Elm, American White 0.18 kU/L (Class 0/I); Immunoglobulin E 1548 IU/mL (6-495); Immunoglobulin E 1564 IU/mL (6-495); Maple/Box Elder 1.22 kU/L (Class II); Mouse Urine 4.54 kU/L (Class IV); Mulberry, White 0.12 kU/L (Class 0/I); Pecan 0.23 kU/L (Class 0/I); Penicillium Notatum <0.10 kU/L (Class 0); Pigweed, Rough 0.21 kU/L (Class 0/I); Ragweed, Short/Common 0.32 kU/L (Class I); Russian Thistle 0.31 kU/L (Class 0/I); Sheep Sorrel 0.19 kU/L (Class 0/I); Sycamore, American 0.21 kU/L (Class 0/I)
== END | disposition home or self-care (01) ==
LOC: RAD 10:44
PROVIDERS: PCP Family Medicine; Referring Provider Internal Medicine; Visit Provider Internal Medicine
DX: J45.909 Unspecified asthma, uncomplicated (principal); R05.9 Cough, unspecified
CPT/HCPCS: 36415; 71046; 82785; 86003